=== PATIENT | male | born 1975 | race Caucasian/White ===

== ENCOUNTER → 2017-03-27 11:10 | Outpatient (CLI) | payer BC, SELFPAY ==
[2017-03-27 12:42] LABS: PSA,Total- Diagnostic 0.49 ng/mL (0.0-4.0)
== END ==
PROVIDERS: Family Provider Family Medicine; PCP Family Medicine; Visit Provider Family Medicine
DX: N40.0 Benign prostatic hyperplasia without lower urinary tract symptoms (principal)
CPT/HCPCS: 36415; 84153

== ENCOUNTER → 2017-12-30 06:21 | Outpatient (CLI) | payer BC, SELFPAY ==
[2017-12-30 09:11] LABS: AST(SGOT) 22 U/L (15-37); Alanine Aminotransfer ALT/SGPT 51 U/L (16-61); Alkaline Phosphatase 84 U/L (45-117); Anion Gap 7 (5-15); BUN 19 mg/dL (7-18); BUN/Creat Ratio 18.6 RATIO (10-20); Calcium,Total 8.5 mg/dL (8.5-10.1); Chloride 102 mmol/L (98-107); Cholesterol 188 mg/dL (200); Creatinine, Serum 1.02 mg/dL (0.70-1.30); EST Glomerular Filtration Rate 84 mL/min (>60); Est Glom Filt Rate - Afr Amer 102 mL/min (>60); Glucose 75 mg/dL (74-106); High Density Lipoprotein 38 mg/dL; Potassium 3.9 mmol/L (3.5-5.1); Sodium Level 138 mmol/L (136-145); Thyroid Stim Hormone (TSH) 1.47 uIU/mL (0.358-3.74); Triglycerides 131 mg/dL; Very Low Density Lipoprotein 26 mg/dL (5-40)
[2017-12-30 09:45] LABS: Vitamin D,25 Hydroxy 23.1 ng/mL (29.95-100.01)
== END ==
PROVIDERS: Family Provider Family Medicine; PCP Family Medicine; Referring Provider Family Medicine; Visit Provider Family Medicine
DX: Z00.00 Encounter for general adult medical examination without abnormal findings (principal)
CPT/HCPCS: 36415; 80053; 80061; 82306; 84443

== ENCOUNTER → 2020-04-20 15:03 | Outpatient (CLI) | payer BC, SELFPAY ==
[2013-06-01 09:09] VITALS: BMI 36.1
--- NOTE | 2020-04-20 15:07 | RAD_ITS ---
STUDY: X-RAY - RIGHT KNEE REASON FOR EXAM: Right knee pain. TECHNIQUE: 4 view(s) of the knee. COMPARISON: None. FINDINGS: Normal visualized distal femur. Normal visualized proximal tibia and fibula. Normal proximal tibiofibular articulation. There is mild joint space narrowing of the medial femorotibial compartment. Normal lateral femorotibial compartment. Normal patellofemoral articulation. The soft tissue structures are unremarkable. RAD/Knee 4 or More Views IMPRESSION: Mild joint space narrowing of the medial femorotibial compartment. Electronically Signed: Juan Jose Carter MD at 8:27 EST Tel , Service support ,
== END ==
LOC: MTLAB 15:05
PROVIDERS: PCP Family Medicine; Referring Provider Family Medicine; Visit Provider Family Medicine
DX: M25.561 Pain in right knee (principal); E29.1 Testicular hypofunction
CPT/HCPCS: 36415; 73564; 84403

== ENCOUNTER → 2020-04-29 14:11 | Outpatient (CLI) | payer BC, SELFPAY ==
[2013-06-01 09:09] VITALS: BMI 36.1
== END ==
LOC: MTLAB 14:12
PROVIDERS: PCP Family Medicine; Referring Provider Family Medicine; Visit Provider Family Medicine
DX: E29.1 Testicular hypofunction (principal)
CPT/HCPCS: 36415; 84403

== ENCOUNTER → 2020-07-19 16:48 | Outpatient (CLI) | payer BC, SELFPAY ==
[2013-06-01 09:09] VITALS: BMI 36.1
[2020-07-19 18:01] LABS: Absolute Lymphocyte Count 1.77 X10^3/uL (0.83-4.51); Absolute Neutrophil Count 7.6 X10^3/uL (2.0-7.7); Basophil# 0.04 X10^3/uL; Basophil% 0.4 % (0-1); Eosinophil# 0.08 X10^3/uL; Eosinophils% 0.8 % (0-5); Hematocrit 53.2 % (40-54); Lymphocyte # 1.77 X10^3/ul (0.83-4.51); Lymphocyte % 17.3 % (19-41); Mean Corpuscular Hgb 28.6 pg (27.0-32.0); Mean Corpuscular Volume 89.4 fL (80-94); Mean Platelet Vol. 9.9 fl (6.2-12.0); Monocyte# 0.66 X10^3/uL; Monocyte% 6.5 % (0-10); NRBC Flagged by Analyzer 0 % (0-5); Neutrophil # 7.63 X10^3/uL (2.7-7.7); Neutrophil % 74.6 % (47-70); Platelet Count 271 K/mm3 (150-450); RBC Distribution Width CV 13.5 % (11.6-14.6); RBC Distribution Width SD 44.5 fl (35.1-43.9); Red Blood Count 5.95 M/mm3 (4.6-6.2); White Blood Count 10.2 K/mm3 (4.4-11.0)
[2020-07-19 18:31] LABS: AST(SGOT) 22 U/L (15-37); Alanine Aminotransfer ALT/SGPT 47 U/L (16-61); Albumin, Serum 3.8 g/dL (3.2-5.0); Alkaline Phosphatase 76 U/L (45-117); Anion Gap 4 (5-15); BUN 15 mg/dL (7-18); CRP 3.68 mg/L (0.0-3.0); Calcium,Total 8.7 mg/dL (8.5-10.1); Chloride 104 mmol/L (98-107); Cholesterol 210 mg/dL (200); Creatinine, Serum 0.88 mg/dL (0.70-1.30); EST Glomerular Filtration Rate 99 mL/min (>60); Est Glom Filt Rate - Afr Amer 119 mL/min (>60); Globulin 3.7 g/dL (2.2-4.2); Glucose 93 mg/dL (74-106); High Density Lipoprotein 42 mg/dL; Protein, Total 7.5 g/dL (6.4-8.2); Sodium Level 137 mmol/L (136-145); Thyroid Stim Hormone (TSH) 1.34 uIU/mL (0.358-3.74); Triglycerides 169 mg/dL; Very Low Density Lipoprotein 34 mg/dL (5-40)
[2020-07-20 07:51] LABS: CRP, High Sensitivity Cardiac 3.64 mg/L
== END ==
LOC: MTLAB 16:49
PROVIDERS: PCP Family Medicine; Referring Provider Nurse Practitioner Family; Visit Provider Nurse Practitioner Family
DX: R53.83 Other fatigue (principal); M62.81 Muscle weakness (generalized); E66.9 Obesity, unspecified
CPT/HCPCS: 36415; 80053; 80061; 83036; 84443; 85025; 86140; 86141

== ENCOUNTER → 2020-08-23 14:58 | Outpatient (CLI) | payer BC, SELFPAY ==
[2013-06-01 09:09] VITALS: BMI 36.1
--- NOTE | 2020-08-23 15:00 | RAD_ITS ---
STUDY: X-RAY - CERVICAL SPINE REASON FOR EXAM: Male, 45 years old. CERVICAL RADICULOPATHY TECHNIQUE: 5 view(s) of the cervical spine were obtained including oblique views. COMPARISON: None FINDINGS: Normal anterior atlantoaxial articulation. Normal odontoid process. There is straightening of the normal cervical lordosis. There is multi-level endplate spondylosis. There is multi-level degenerative disc disease with multilevel disc space narrowing. Normal visualized intervertebral neuroforamina. The soft tissue structures are unremarkable. RAD/Cerv Spine 4 or 5 Views IMPRESSION: Straightening of the normal cervical lordosis with disc space narrowing and spondylosis at the C4-C5, C5-6 and C6-C7 levels. Electronically Signed: Aguilar Barbosa MD at 15:38 EDT , Service support ,
== END ==
LOC: MTRAD 14:59
PROVIDERS: PCP Family Medicine; Referring Provider Family Medicine; Visit Provider Family Medicine
DX: M54.12 Radiculopathy, cervical region (principal)
CPT/HCPCS: 72050

== ENCOUNTER → 2020-12-23 15:37 | Outpatient (CLI) | payer BC, SELFPAY | PROVIDERS: PCP Family Medicine; Referring Provider Family Medicine; Visit Provider Family Medicine | DX: E29.1 Testicular hypofunction (principal) | CPT/HCPCS: 36415; 84403 ==

== ENCOUNTER 2021-02-27 07:07 | Outpatient (CLI) | payer BC, SELFPAY ==
--- NOTE | 2021-02-27 07:22 | MRI_ITS ---
ACR Level 3 findings have been noted. An addendum which confirms receipt of the report will follow. HISTORY: Radiculopathy 6 months, severe neck pain between shoulder blades up neck down left and right arms to elbows. TECHNIQUE: Routine MRI of the cervical spine was performed. # of images incl. paperwork: 267. IV Contrast dosage and agent: None. COMPARISON: XR 08/23/2020. FINDINGS: VERTEBRAE: Vertebral body heights maintained. Focal fat or small hemangioma in the left C2 vertebral body. Mild degenerative bone marrow endplate changes at C4-5, C5-6, and C6-7. ALIGNMENT: Straightening of the cervical lordosis without significant anterior or posterior subluxation. CORD: Slightly increased T2 signal in the cord at the C5-6 level. SOFT TISSUES: No prevertebral fluid collection. INTERVERTEBRAL DISCS: C2-3: No significant posterior disc protrusion, central canal stenosis, or foraminal narrowing. C3-4: Moderate central disc extrusion with superior migration resulting in cord abutment and mild-moderate central canal stenosis. C4-5: Posterior disc bulge osteophyte complex with uncovertebral and facet arthropathy resulting in mild-moderate central canal stenosis and very mild right foraminal narrowing. C5-6: 6 x 9 x 18 mm ventral epidural lesion with circumscribed peripheral hypointensity and centrally T1 and T2 isointense to the intervertebral disc at the posterior aspect of the intervertebral disc with superior and inferior migration, markedly severe spinal canal stenosis, and cord compression. C6-7: Moderate posterior disc bulge osteophyte complex with uncovertebral and facet arthropathy resulting in mild cord impingement, moderate central canal stenosis, and very mild left foraminal narrowing. MRI/Spine Cervical (Routine) IMPRESSION: Ventral epidural lesion at the C5-6 level suspicious for disc extrusion with superior and inferior migration resulting in cord compression, mild spinal cord edema, and severe spinal canal stenosis. Tumor could have a similar appearance on noncontrast examination. Multilevel degenerative disc disease as described above. at 1041 Reported and signed by: Winsome Garibay MD Electronically Signed: Winsome Garibay MD at 10:39 EST Tel , Service support ,
== END 2021-02-27 23:59 | disposition short-term general hospital (02) ==
PROVIDERS: PCP Family Medicine; Referring Provider Family Medicine; Visit Provider Family Medicine
DX: M54.12 Radiculopathy, cervical region (principal)
CPT/HCPCS: 72141

== ENCOUNTER 2021-04-07 07:26 | Inpatient (IN) | payer BC, SELFPAY ==
--- NOTE | 2021-03-29 16:12 | EKG12_ITS ---
Test Reason : PRE OP Blood Pressure : / mmHG Vent. Rate : 073 BPM Atrial Rate : 073 BPM P-R Int : 168 ms QRS Dur : 074 ms QT Int : 368 ms P-R-T Axes : 003 -18 023 degrees QTc Int : 405 ms Normal sinus rhythm Normal ECG Confirmed by TONIA TATUM, ZIA ([id number]), medical editor AYAD ABDI ([id number]) on 04/04/2021 12:58:59 PM Referred By: AYAZ Confirmed By:ZIA RANDALL MD
[2021-03-29 16:22] LABS: Absolute Lymphocyte Count 2.48 X10^3/uL (0.83-4.51); Absolute Neutrophil Count 6.2 X10^3/uL (2.0-7.7); Basophil# 0.04 X10^3/uL; Basophil% 0.4 % (0-1); Eosinophil# 0.23 X10^3/uL; Eosinophils% 2.4 % (0-5); Hematocrit 50.7 % (40-54); Hemoglobin 16.8 g/dL (13.0-16.5); Lymphocyte # 2.48 X10^3/ul (0.83-4.51); Lymphocyte % 25.4 % (19-41); Mean Corp Hgb Conc 33.1 g/dL (32-36); Mean Corpuscular Hgb 28.8 pg (27.0-32.0); Mean Corpuscular Volume 86.8 fL (80-94); Monocyte# 0.77 X10^3/uL; Monocyte% 7.9 % (0-10); NRBC Flagged by Analyzer 0 % (0-5); Neutrophil # 6.19 X10^3/uL (2.7-7.7); Neutrophil % 63.5 % (47-70); Platelet Count 268 K/mm3 (150-450); RBC Distribution Width CV 13.8 % (11.6-14.6); RBC Distribution Width SD 43.3 fl (35.1-43.9); Red Blood Count 5.84 M/mm3 (4.6-6.2); White Blood Count 9.8 K/mm3 (4.4-11.0)
[2021-03-29 17:02] LABS: Anion Gap 5 (5-15); BUN 15 mg/dL (7-18); BUN/Creat Ratio 17.4 RATIO (10-20); Chloride 103 mmol/L (98-107); Creatinine, Serum 0.86 mg/dL (0.70-1.30); EST Glomerular Filtration Rate 101 mL/min (>60); Est Glom Filt Rate - Afr Amer 122 mL/min (>60); Glucose 85 mg/dL (74-106); Potassium 4.2 mmol/L (3.5-5.1); Sodium Level 138 mmol/L (136-145)
[2021-03-30 08:54] LABS: HIV - WCH Non-Reactive (Nonreactive); Hepatitis B Surface Antibody Reactive; Hepatitis C Antibody Non-Reactive (Nonreactive)
[2021-03-31 06:08] LABS: MG Sendout 2.3 mg/dL (1.6-2.3)
[2021-03-31 14:26] LABS: Hepatitis A AB, Total Negative (Negative)
[2021-04-07] VITALS (14 sets, daily range): BP systolic 130–161; BP diastolic 77–104; PULSE 87–114; RESP 16–18; TEMP 36.4–36.7; O2SAT 92–97; BMI 38.5
[2021-04-07] MEDS: Acetaminophen 500 MG Tablet 1000 MG PO ×2 (06:26→22:43)
[2021-04-07] MEDS: Lactated Ringers 1,000 ML 15 ML IV ×3 (06:36→11:00)
[2021-04-07] MEDS: dexAMETHasone 10 MG/ML Vial 8 MG IV (06:37)
[2021-04-07 07:07] LABS: Bedside Glucose 126 mg/dL (70-110)
--- NOTE | 2021-04-07 07:25 | HP.PCM_ITS ---
History and Physical Date of Admission: 04/07/21 [facility] [id number] [phone] OFFICE VISITDate of Service: 03/06/21 MR#:[id number]:[id number]: REBECCA PADGETT WR #:[id number]:[id number] Provider:Dr. Damir Dubose, Age/Sex: 46/M Location:[place]:Signed Intake Vital Signs 03/06/21 14:36 Height 5 ft 8 in Weight: 251 lb BMI 38.1 Intake Visit Reasons: Cervical pain Is patient in pain?: Yes Pain scale (1-10): 8 Allergies shellfish derived Allergy (Verified 03/06/21 14:36) rash Medications citalopram 20 mg PO DAILY 06/01/13 [History Confirmed 03/06/21] dicloxacillin 500 mg PO Q6H 5 Days capsule 06/01/13 [Rx Confirmed 03/06/21] hydrocodone-acetaminophen 1 tab PO Q4H PRN PRN #20 tablet 06/01/13 [Rx Confirmed 03/06/21] gabapentin 300 mg capsule 300 mg PO DAILY 03/06/21 [History Confirmed 03/06/21] PFSH Social History Smoking Status: Unknown if ever smoked HPI Pain of cervical spine Details: Parts of this documentation were recorded by a scribe, this documentation accurately reflects the service provided and the decisions made by me, Dr. Damir Dubose, 03/06/21 5430. REBECCA PADGETT is a 46 year old M here today for cervical spine pain. Patient notes that he has had pain for about a year. He denies any known injury. 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 Patient denies any prior surgeries. He complains of pain over his mid cervical spine. Patient notes that he has numbness of his bilateral arms, typically stopping at his elbows but he has noticed it traveling farther down. Patient went to [facility] for physical therapy and PRP injection which was helpful for about 6 months. Patient denies any epidural injections. He had xrays and an MRI which are here for review. Patient takes hydrocodone and aleve for pain. He also takes gabapentin for pain when the other medications arent helpful. Rebecca is a pleasant gentleman 46 years old that has chief complaint of pain in his neck that sometimes radiates into both his arms. This started insidiously perhaps somewhere between 6 and 9 months ago. But it came on fast. He has tried different treatments but Dr. Tobias had the foresight to order an MRI scan of his cervical spine after examining him. He denies any bowel or bladder dysfunction. He denies any uncoordination or weakness in both his lower extremities. He denies numbness in his lower extremities. He denies history of unexplained weight loss night fever sweats or chills. Examination he has more pain with extension and flexion of his cervical spine. He has good motor strength of all major muscle groups of both upper extremities. He has physiologic reflexes bilaterally. He has hyper reflexive patellar reflexes bilaterally. But he has no long tract signs. Clonus is absent and Babinski's are downgoing. I reviewed his MRI scan demonstrates that he has a large extrusion in the center at C5-6. The material went behind the C6 vertebral body perhaps 60% of the way down. There is currently no myelomalacia of the spinal cord. However there is a slightly increased T2 signal behind the C5-6 area. This indicates some significant pressure on the spinal cord itself. I discussed this finding with the Rebecca and his . Obviously this will require surgical intervention. To get all of the disc I will probably have to do a partial corpectomy of the top of C6 vertebra. We will schedule him for surgery as soon as is reasonably possible. Coding Level of Care Code Off vis,new,level 3 Diagnoses Pain of cervical spine M54.2 HNP (herniated nucleus pulposus) with myelopathy, cervical M50.00 Time Spent (min) 35 Assessment and Plan Assessment and Plan (1) Pain of cervical spine:
--- NOTE | 2021-04-07 07:30 | DISC_PTH ---
PATIENT: REBECCA PADGETT LOC: MS3 U#:[id number] AGE/SX: 46/M [place] [facility] [place]: Dr. Jovita Hewitt DO : 1975 BED: 1 DIS: 04/08/2021 SPEC #: [id number] RECD: 04/07/21 11:32 STATUS: ALIYA SHONDA #: [id number] LAM: 04/07/21 07:[address]: Damir Dubose DEPT: SURGICAL PATHOLOGY RECD BY: Armando Keyes ENTERED: 04/07/21 13:08 SP TYPE: DISC OTHR DR: Dr. Vitor Tobias MD Tissues: A - Intervertebral disc, NOS B - Intervertebral disc, NOS Procedures: Decalcification bone/plaque Surgery Specimen Level III HEADER OPERATION: ERAS, anterior cervical fusion cervical 5-6 with corpectomy PRE-OP DIAGNOSIS: Pain of cervical spine, herniated nucleus pulposus with myelopathy TISSUE SUBMITTED: A ? C5-6 disc, B ? Extruded fragment C5-6 MICROSCOPIC DIAGNOSIS A. Intervertebral disc, C5-6, discectomy: Degenerative and focal reparative change. B. Extruded fragment of disc, C5-6, biopsy: Fragments of intervertebral disc with degenerative change. AM:zay 04/12/2021 MICROSCOPIC DESCRIPTION Slides are reviewed. GROSS DESCRIPTION A - Received in fixative is one container labeled with the patient's name and designated C5-6 disc. The specimen consists of multiple irregular fragments of jade, indurated tissue that in aggregate measure 5 x 3 x 0.3 cm. The specimen is totally submitted in two cassettes. B - Received in fixative is one container labeled with the patient's name and designated extruded fragment C5-6. The specimen consists of multiple irregular fragments of jade soft tissue mixed with fragments of bone that in aggregate measure 2.5 x 1 x 0.3 cm. The specimen is totally submitted in one cassette after decalcification. / SJ:zay 04/07/2021 TC:5 CPT: 50460 x2, 24694
[2021-04-07] MEDS: Cefazolin 2 GM in 0.9% Normal Saline 100 ML IV (07:44)
--- NOTE | 2021-04-07 08:05 | RAD_ITS ---
STUDY: X-RAY - CERVICAL SPINE REASON FOR EXAM: Male, 46 years old. ANTERIOR FUSION C5-6 WITH INTERNAL FIXATION -- IMAGE 1 TECHNIQUE: Single lateral view(s) of the cervical spine was obtained. COMPARISON: None FINDINGS: Localization instrument seen along the anterior aspect of the C5-C6 disc space level. RAD/Spine 1 View Any Level IMPRESSION: Localization instrument is seen along the anterior aspect of the C5-C6 disc space level. Electronically Signed: Aguilar Barbosa MD at 8:47 EST ,
[2021-04-07] MEDS: Heparin 10,000 UNITS/10 ML Vial 10000 UNITS (08:40)
[2021-04-07] MEDS: THROMBIN (RECOMBINANT) 20,000 UNIT VIAL 20000 UNIT TOPICAL (08:40)
--- NOTE | 2021-04-07 09:10 | RAD_ITS ---
STUDY: X-RAY - LUMBAR SPINE REASON FOR EXAM: Male, 46 years old. ANTERIOR CERVICAL FUSION, CORPECTOMY,INTERNAL FIXATION AND CAGE -- IMAGE 2 TECHNIQUE: Single lateral view(s) of the lumbar spine was obtained. COMPARISON: None FINDINGS: The localization instrument is seen along the anterior aspect of the C6-C7 level. RAD/Spine 1 View Any Level IMPRESSION: Localization instrument is seen along the anterior aspect of the C6-C7 level. Electronically Signed: Aguilar Barbosa MD at 10:12 EST ,
--- NOTE | 2021-04-07 09:19 | RAD_ITS ---
STUDY: X-RAY - LUMBAR SPINE REASON FOR EXAM: Male, 46 years old. POSITION RE-CHECK -- #3 TECHNIQUE: 1 lateral view(s) of the lumbar spine was obtained. COMPARISON: None FINDINGS: The localization instrument is seen along the anterior aspect of the C5-C6 level. RAD/Spine 1 View Any Level IMPRESSION: The localization instrument is seen along the anterior aspect of the C5-C6 level. Electronically Signed: Aguilar Barbosa MD at 10:13 EST ,
--- NOTE | 2021-04-07 11:30 | OP.PCM_ITS ---
Report of Operation Date of Procedure: 04/07/21 Description of Surgical Findings:: Preoperative diagnosis: Herniated disc C5-6 with myelopathy Postoperative diagnosis: The same Procedures: #1 corpectomy of the C6 vertebra (50% of vertebra removed) CPT code 89476 #2 anterior lumbar interbody fusion C5-6 CPT code 46675 #3 internal fixation with anterior spine plate CPT code 04110/59 #4 insertion of cage C5-6 CPT code 69823 Surgeon: Dr. Dubose equity sales assistant: J Luis RICHARDSON Anesthesia: General endotracheal anesthesia administered by [facility] Estimated blood loss: Less than 30 cc Drains: 1/4 inch Sowmya Complications: None Procedure: Patient was taken to the OR where he was placed in the supine position on the operating table. He was placed under general endotracheal anesthesia. A Umaña catheter was inserted. Neuro monitoring placed their leads on the patient. The neck and right crest area were prepped and draped in standard fashion. Noted prior to the prepping the skin was marked with a small laceration using the end of a needle at the point where the incision would start this is based on an x-ray taken preoperatively. I then made the incision at that predetermined point in line with one of his longer's lines. Subcutaneous tissues were incised length of skin incision I then undermined the subcutaneous tissues in a cephalad and caudad direction. I split the platysma and right line with its fibers and developed the planes under them. First we opened the superficial cervical fascia followed by the opening of the pretracheal fascia. I was then able to retract the midline structures and strap muscles to the left the carotid and sternocleidomastoid to the right. Notify the disc space thought to be C5-6. Instead it was C6-7. We simply moved up the level and placed another needle at 5 6 and took another x-ray to absolutely confirm that we were indeed at the C5-6 level which we were. It was confirmed by radiology. Then cauterized the longus coli muscles on either side and put the database administration associate retractors in place. He was quite deep and we had to use 60 mm depth side to side and 70 up-and-down. This gave us good exposure to the C5-6 disc. I then cut the anterior annulus with a 15 blade and removed it. I then cauterized the anterior longitudinal ligament and periosteum above and below the disc space. I went fairly far down on C6 because I knew that I was going to have to do a corpectomy. The disc was so large that it went down about 60% of the way to the next disc. This was an extremely large and central disc rather unusual. There was some question that it could possibly be a tumor however it turned out to be a disc. Then removed the nucleus from within the disc space with pituitary rongeurs and removed some of the endplate cartilage with curettes especially at the top of C6. Was able to identify the large tear in the posterior longitudinal ligament and removed a couple of free fragments of disc. I need however there would be more and we would have to proceed with the corpectomy. I used a oj bur both a 4 mm and 6 mm bur to slowly bur the top of the vertebra this was done with the instillation of cold saline over and over again to keep the bone cool and to keep the tip of the oj bur cool about half of the vertebra was removed in this fashion. Then used Kerrison rongeurs to remove the remaining posterior lip that was not removed with the bur for fear. I also removed some of the posterior longitudinal ligament in this fashion opening a large space several large free fragments were then removed completely decompressing the spinal cord. We remove the anterior lips on both vertebra with oj bur. Patient was were taken for a large cage. We used the largest cage available and it filled the entire large space. Note that we have filled it with demineralized bone matrix that was soaked in the patient's own concentrated stem cells. This was obtained earlier from the right iliac crest through a Jamshidi needle. The computer laboratory technician then concentrated the cells and them from the other cells. Then tamped it into place with anesthesia pulling on the head and countersunk it a couple of millimeters. We then took her measurements for the size of the plate that we would use. Because we did remove some much of the vertebra of the area the plate the screws and was small and had in fact bur the beginning of the lip of the plate would fit flat. Centered the plate used awl to punch each hole individually 2 into C5 and 2 into C6. We then observed this on x-ray was found to be in excellent position with good position of the large cage the plate and the screws. Amnionic membrane was then placed over the plate to prevent adhesions to the trachea or the esophagus. Using the amniotic membrane can result in adhesions forming to the esophagus leaving the patient with difficulty swallowing for the rest of their lives. It is the reason that we use the amnionic membrane as this prevents that from happening. 1/4 inch Elk drain was then left in place and closure was begun. We closed the the platysma running fashion with 5-0 Vicryl 5 the closure of the subcutaneous tissues with 5-0 Vicryl in interrupted fashion. This approximated the skin there was no need for outside stitches. Sterile dressings were then applied and a safety pin was placed through the drain to prevent a suction into the wound. This is the end of operative summary on Kirt Lora. This is Dr. Dubose dictating.
--- NOTE | 2021-04-07 11:40 | RAD_ITS ---
STUDY: X-RAY - LUMBAR SPINE REASON FOR EXAM: Male, 46 years old. CERVICAL FUSION TECHNIQUE: 1 view(s) of the lumbar spine was obtained. COMPARISON: None FINDINGS: The patient is status post anterior fusion and disc placement at the C5-C6 level. RAD/Spine 1 View Any Level IMPRESSION: The patient is status post anterior fusion and disc placement at the C5-C6 level. Electronically Signed: Aguilar Barbosa MD at 12:35 EST ,
[2021-04-07] MEDS: dexAMETHasone 4 MG/ML Vial IV ×2 (13:17→18:34)
[2021-04-07] MEDS: Morphine 2 MG/ML Syringe IV (15:09)
[2021-04-07] MEDS: Cefazolin 1 GM/50 ML BAG IV ×2 (16:49→23:05)
[2021-04-07] MEDS: oxyCODONE 5 MG Tablet PO ×2 (16:50→20:57)
[2021-04-07] MEDS: Lactated Ringers 1,000 ML 100 ML IV (18:29)
[2021-04-07] MEDS: Zolpidem Tartrate 5 MG Tablet PO (20:57)
--- NOTE | 2021-04-07 21:41 | EKG12_ITS ---
Test Reason : CP Blood Pressure : / mmHG Vent. Rate : 098 BPM Atrial Rate : 098 BPM P-R Int : 186 ms QRS Dur : 074 ms QT Int : 352 ms P-R-T Axes : 051 -20 021 degrees QTc Int : 449 ms Normal sinus rhythm Leftward axis Confirmed by TONIA TATUM, ZIA ([id number]), videotape editor AYAD ABDI ([id number]) on 04/12/2021 1:10:20 PM Referred By: Damir Dubose Confirmed By:ZIA RANDALL MD
--- NOTE | 2021-04-07 22:46 | PCM.PN.HOSP ---
Subjective Subjective Consult for post-op medical management: 46-year-old male with chronic cervical spine pain, with associated numbness who comes in for elective surgery. Patient had tried physical therapy and injection in the outpatient which was helpful for short time. Pain was mostly in his neck and radiates into his arms. MRI of his neck had shown a large extrusion in the central C5-C6. He was admitted for herniated disc C5-C6 with myelopathy. Hospital medicine was consulted for postop medical management. Patient earlier on complained of chest pain, left-sided, dull, lasted for a few minutes. EKG showed normal sinus rhythm. Vital signs remained stable. He is slightly tachycardic. He complains of frontal headache, inability to sleep. Denied any history of migraines or headaches. Objective Data Objective Data Vital Signs: Vital Signs Temp Pulse Resp BP Pulse Ox 98.1 F 101 H 18 137/88 H 97 04/07/21 21:31 04/07/21 21:31 04/07/21 21:31 04/07/21 21:31 04/07/21 21:31 Oxygen Flow Rate (L/min) 4 Oxygen Delivery Method Room Air Weight: 111.493 kg Body Mass Index (BMI) 38.5 Intake & Output: Intake and Output for Last 24 Hours 04/05/21 04/06/21 04/07/21 23:59 23:59 23:59 Intake Total 2267 / 2267 Output Total 1125 / 1125 Balance 1142 / 1142 Lab / Micro Data Result Diagrams: 03/29/21 15:59 03/29/21 15:59 Labs: Laboratory Results - last 24 hr 04/07/21 06:07: POC Glucose 126 H Micro: Microbiology 03/29/21 15:59 Interface Orders Nasal Screen MRSA/MSSA - Final Radiography Diagnostic Testing: Radiology Impression Spine X-Ray 04/07/21 08:05 IMPRESSION: Localization instrument is seen along the anterior aspect of the C5-C6 disc space level. Electronically Signed: Aguilar Barbosa MD at 8:47 EST , Spine X-Ray 04/07/21 09:10 IMPRESSION: Localization instrument is seen along the anterior aspect of the C6-C7 level. Electronically Signed: Aguilar Barbosa MD at 10:12 EST , Spine X-Ray 04/07/21 09:19 IMPRESSION: The localization instrument is seen along the anterior aspect of the C5-C6 level. Electronically Signed: Aguilar Barbosa MD at 10:13 EST , Spine X-Ray 04/07/21 11:40 IMPRESSION: The patient is status post anterior fusion and disc placement at the C5-C6 level. Electronically Signed: Aguilar Barbosa MD at 12:35 EST , Physical Exam Narrative Physical exam: General: Alert, Oriented x3, Cooperative, No apparent distress, Well developed, obese HEENT: Atraumatic, soft cervical collar in place Oral: Moist Mucosa Neck: Supple Lungs: Clear to auscultation Cardiovascular: HS I+II, regular, no murmurs Abdomen: Bowel Sounds Present, Soft, Non Tender Extremities: No edema Assessment & Plan Assessment/Plan (1) Herniated nucleus pulposus, C5-6 left: (2) HNP (herniated nucleus pulposus) with myelopathy, cervical: PLAN: 1. Postop chest pain, unclear etiology, patient without risk factors for cardiovascular disease EKG showed no acute ST-T abnormality, troponins x1 was negative Continue to monitor 2. POD #0, status post cervical surgery-corpectomy of the C6 vertebrae, anterior lumbar interbody fusion C5-C6, internal fixation with anterior spine plate, insertion of cage C6-6 Continue on IV dexamethasone, antibiotics, as needed pain meds PT/OT to evaluate and treat. Neurosurgery recommendations 3. Anxiety/depression: Continue Celexa 4. DVT PPx- per neurosurgery recommendation Charges/Coding Visit Charges Inpatient E&M: 49065 Subs Hosp L2
[2021-04-07 23:59] LABS: Troponin-I HS 5 pg/mL (3.0-78.0)
[2021-04-08] MEDS: dexAMETHasone 4 MG/ML Vial 2 MG IV ×2 (00:09→06:13)
[2021-04-08] MEDS: Ketorolac 30 MG/ML Syringe IV (00:09)
[2021-04-08 01:29] VITALS: BP 146/86; PULSE 104; RESP 18; TEMP 36.7; O2SAT 95
[2021-04-08] MEDS: Lactated Ringers 1,000 ML 100 ML IV (04:14)
[2021-04-08] MEDS: 0.9% Saline Lock 10 ML Syringe IV (04:25)
[2021-04-08] MEDS: Morphine 2 MG/ML Syringe IV (04:25)
[2021-04-08 04:32] VITALS: BP 136/74; PULSE 92; RESP 18; TEMP 36.6; O2SAT 95
[2021-04-08 06:17] LABS: Absolute Lymphocyte Count 0.71 X10^3/uL (0.83-4.51); Basophil# 0.01 X10^3/uL; Basophil% 0.1 % (0-1); Hematocrit 49.6 % (40-54); Hemoglobin 16.9 g/dL (13.0-16.5); Lymphocyte # 0.71 X10^3/ul (0.83-4.51); Mean Corp Hgb Conc 34.1 g/dL (32-36); Mean Corpuscular Hgb 29.2 pg (27.0-32.0); Mean Corpuscular Volume 85.8 fL (80-94); Monocyte# 0.41 X10^3/uL; Monocyte% 2.9 % (0-10); NRBC Flagged by Analyzer 0 % (0-5); Neutrophil # 12.97 X10^3/uL (2.7-7.7); Neutrophil % 91.5 % (47-70); Platelet Count 256 K/mm3 (150-450); RBC Distribution Width CV 13.3 % (11.6-14.6); RBC Distribution Width SD 41.6 fl (35.1-43.9); Red Blood Count 5.78 M/mm3 (4.6-6.2); White Blood Count 14.2 K/mm3 (4.4-11.0)
[2021-04-08 06:29] VITALS: BP 138/76; PULSE 85; RESP 16; TEMP 36.6; O2SAT 96
[2021-04-08 06:51] LABS: ALB/GLOB Ratio 0.9 RATIO (0.9-2.4); AST(SGOT) 29 U/L (15-37); Alanine Aminotransfer ALT/SGPT 41 U/L (16-61); Albumin, Serum 3.3 g/dL (3.2-5.0); Alkaline Phosphatase 68 U/L (45-117); Anion Gap 5 (5-15); BUN 17 mg/dL (7-18); BUN/Creat Ratio 20.5 RATIO (10-20); Calcium,Total 8.3 mg/dL (8.5-10.1); Chloride 103 mmol/L (98-107); Creatinine, Serum 0.83 mg/dL (0.70-1.30); EST Glomerular Filtration Rate 106 mL/min (>60); Est Glom Filt Rate - Afr Amer 128 mL/min (>60); Estimated Creatinine Clearance 102.87 ml/min; Globulin 3.7 g/dL (2.2-4.2); Glucose 142 mg/dL (74-106); Potassium 4.2 mmol/L (3.5-5.1); Sodium Level 136 mmol/L (136-145)
[2021-04-08 08:57] VITALS: BP 145/86; PULSE 80; RESP 18; TEMP 36.6; O2SAT 98
[2021-04-08] MEDS: Ensure Surgery 237 ML LIQUID PO ×2 (09:02→11:56)
[2021-04-08] MEDS: Citalopram 20 MG Tablet PO (09:02)
[2021-04-08] MEDS: oxyCODONE 5 MG Tablet PO (10:09)
[2021-04-08] MEDS: Acetaminophen 500 MG Tablet 1000 MG PO (10:09)
--- NOTE | 2021-04-08 12:30 | CASEMGMT ---
RN [place] Face to Face with patient for initial transition planning/care coordination assessment. RN CM introduced self and role at [facility]. Patient sitting in chair, alert and oriented. Patient willing to participate in assessment and is able to answer all questions appropriately. Care providers, pharmacy, and demographics verified. Patient wishes to discharge home, denies need for home health at this time. Patient states he has no further needs or concerns at this time. CM to follow for discharge planning needs that may arise. PCP: Micheline Specialists: nathen Dubose Pharmacy: [facility] Insurance: [place] Prescription Benefit: yes Living Will/HPOA: none LNOK: Living Arrangements: Patient lives with in a 2 story home with bed and bath on first floor. Patient was independent at home prior to surgery Transportation: DME/HHC: Patient states he has access to walker if needed. Denies further DME or previous HHC. Disposition Plan: Patient to discharge home with family support and follow-up plans in place. Jolanta LIZ, RN, CM
--- NOTE | 2021-04-08 13:23 | PN.HOSP_ITS ---
Subjective Subjective Patient states he is feeling well. Asking to order breakfast. States he should be going home later today. No overnight issues other than some neck pain and a headache which he indicated was expected. Objective Data Objective Data Vital Signs: Vital Signs Temp Pulse Resp BP Pulse Ox 97.9 F 80 18 145/86 H 98 04/08/21 08:57 04/08/21 08:57 04/08/21 08:57 04/08/21 08:57 04/08/21 08:57 Oxygen Flow Rate (L/min) 94 Oxygen Delivery Method Nasal Cannula Weight: 111.493 kg Body Mass Index (BMI) 38.5 Intake & Output: Intake and Output for Last 24 Hours 04/06/21 04/07/21 04/08/21 23:59 23:59 23:59 Intake Total 2317 / 2317 1575 / 1575 Output Total 1125 / 2575 3272 / 3272 Balance 1192 / -258 -1697 / -1697 Lab / Micro Data Result Diagrams: 04/08/21 04:38 04/08/21 04:38 Labs: Laboratory Results - last 24 hr 04/07/21 23:16: Troponin I High Sens 5 04/08/21 04:38: WBC 14.2 H, RBC 5.78, Hgb 16.9 H, Hct 49.6, MCV 85.8, MCH 29.2, MCHC 34.1, RDW Std Deviation 41.6, RDW Coeff of Brenton 13.3, Plt Count 256, MPV 10.0, Immature Gran % (Auto) 0.500, Neut % (Auto) 91.5 H, Lymph % (Auto) 5.0 L, Swisher % (Auto) 2.9, Eos % (Auto) 0.0, Baso % (Auto) 0.1, Absolute Neuts (auto) 13.0 H, Absolute Lymphs (auto) 0.71 L, Nucleated RBC % 0 04/08/21 04:38: Sodium 136, Potassium 4.2, Chloride 103, Carbon Dioxide 28.0, Anion Gap 5, BUN 17, Creatinine 0.83, Estim Creat Clear Calc 102.87, Est GFR (MDRD) Af Amer 128, Est GFR (MDRD) Non-Af 106, BUN/Creatinine Ratio 20.5 H, Glucose 142 H, Calcium 8.3 L, Total Bilirubin 0.40, AST 29, ALT 41, Alkaline Phosphatase 68, Total Protein 7.0, Albumin 3.3, Globulin 3.7, Albumin/Globulin Ratio 0.9 Micro: Microbiology 03/29/21 15:59 Interface Orders Nasal Screen MRSA/MSSA - Final Physical Exam Const alert, oriented x3 and no apparent distress Constitutional Narrative: Obese white male sitting up in bed, appears comfortable, nontoxic, soft cervical collar in place Exam Limitations: no limitations Nutritional Appearance: obese HEENT head/scalp atraumatic and moist oral mucous membranes HEENT Narrative: Mallampati is 3, no thrush, dentition is good Head and Scalp: normocephalic Resp normal respiratory effort, no retractions, no use of accessory muscles and clear to auscultation bilaterally Cardio regular rate, regular rhythm, S1 normal heart sound, S2 normal heart sound, no murmurs, no rub, no gallops, no clicks and no JVD GI normal to inspection, nondistended, normoactive bowel sounds, soft to palpation, non-tender and non-distended Extremity no clubbing, cyanosis or edema Peripheral Pulses: Yes pulses 2+ throughout Neuro oriented x3, moves all extremities and no focal motor deficits Sensorium / Orientation: awake and alert Speech: speech normal Assessment & Plan Assessment/Plan (1) Herniated nucleus pulposus, C5-6 left: PLAN: C5-C6 HNP with myelopathy status post cervical corpectomy of the C6 vertebrae with an anterior lumbar interbody fusion at C5 and C6 and internal fixation with an anterior spine plate -Continue postop management per primary service -Plan per orthospine -Postop day 0 -Postop lab results reviewed and no follow-up lab or intervention required at this time -We will stop IV fluids since patient is eating and drinking well Anxiety/depression -Continue Celexa Obesity -Complicates treatment, prognosis, outcomes DVT prophylaxis -Recommendations per primary service Okay to discharge from a medical standpoint Charges/Coding Visit Charges Inpatient E&M: 76430 Subs Hosp L2
--- NOTE | 2021-04-08 13:43 | DS.PCM_ITS ---
Providers Date of Admission: 04/07/21 Primary Care Physician: Dr. Vitor Tobias MD Consultations 04/07/21 22:30 Consult: Hospitalist Routine Consulting Provider: Aida Martinez Reason for Consult: medical management EMERGENT Consult: No MD Notified: Yes Date Notified: 04/07/21 Time Notified: 22:30 Method of Notification: Text Reason For Visit: ANTERIOR CERVICAL FUSION C5, C6 Diagnosis Discharge Diagnosis (1) Herniated nucleus pulposus, C5-6 left: Status: Acute Code(s): M50.222 - Other cervical disc displacement at C5-C6 level Medications at Discharge Home Medications citalopram 20 mg PO DAILY 06/01/13 Tylenol Migraine 0.5 - 1 tab PO/SL DAILY PRN PRN 04/07/21 cholecalciferol (vitamin D3) [Vitamin D3] 250 mcg PO DAILY 04/07/21 tramadol 50 mg PO Q6H 04/07/21 Hospital Course Summary of Care Provided Hospital Course: KirtAdmitted to the hospital yesterday April 07. He underwent anterior cervical corpectomy of C6 with interbody fusion at C5-6. He tolerated the procedure well. Hospital course has been unremarkable. Today his voice is clear he has no Monica's syndrome states that his pain is not too bad at all. The dressing was changed and the drain was removed. I gave him directions regarding his activities over the next several weeks. He already has an appointment to see me in the office. I gave him hydrocodone for pain. He will remove the dressing in 4 days and take a shower in 5 days. Weight / BMI Weight Weight: 245 lb 12.8 oz Body Mass Index (BMI) 38.5 ABG / Lab / Microbiology Data Result Diagrams: 04/08/21 04:38 04/08/21 04:38 Laboratory: Laboratory Results - last 24 hr 04/07/21 23:16: Troponin I High Sens 5 04/08/21 04:38: WBC 14.2 H, RBC 5.78, Hgb 16.9 H, Hct 49.6, MCV 85.8, MCH 29.2, MCHC 34.1, RDW Std Deviation 41.6, RDW Coeff of Brenton 13.3, Plt Count 256, MPV 10.0, Immature Gran % (Auto) 0.500, Neut % (Auto) 91.5 H, Lymph % (Auto) 5.0 L, [place] % (Auto) 2.9, Eos % (Auto) 0.0, Baso % (Auto) 0.1, Absolute Neuts (auto) 13.0 H, Absolute Lymphs (auto) 0.71 L, Nucleated RBC % 0 04/08/21 04:38: Sodium 136, Potassium 4.2, Chloride 103, Carbon Dioxide 28.0, An ion Gap 5, BUN 17, Creatinine 0.83, Estim Creat Clear Calc 102.87, Est GFR (MDRD) Af Amer 128, Est GFR (MDRD) Non-Af 106, BUN/Creatinine Ratio 20.5 H, Glucose 142 H, Calcium 8.3 L, Total Bilirubin 0.40, AST 29, ALT 41, Alkaline Manuel sphatase 68, Total Protein 7.0, Albumin 3.3, Globulin 3.7, Albumin/Globulin Ratio 0.9 Microbiology: Microbiology 03/29/21 15:59 Interface Orders Nasal Screen MRSA/MSSA - Final Meaningful Use Info Meaningful Use Diagnoses (Choose all that apply): None applicable Discharge Plan Admission Admit Date/Time: 04/07/21 14:57 Primary Reason for Your Visit: surgery Attending Provider: Jovita Hewitt Primary Care Provider: Vitor Tobias Consulting Providers: Aida Martinez Discharge Orders/Prescriptions Prescriptions: No Action citalopram 20 MG tablet 20 mg PO DAILY RF: 0 tramadol 50 mg Tablet 50 mg PO Q6H RF: 0 cholecalciferol (vitamin D3) [Vitamin D3] 125 mcg (5,000 unit) Tablet 250 mcg PO DAILY RF: 0 Tylenol Migraine 0.5 - 1 tab PO/SL DAILY PRN PRN (Reason: Migraine Headache) RF: 0 Other Ambulatory Orders: Magnesium (Routine) Timeframe: [id number] Facility: [facility] - Location: Laboratory Ordered By: Dr. Garry Walton 12 Lead EKG (Routine) Location: None Selected Ordered By: Dr. Damir Dubose Referrals / Follow Up: Vitor Tobias MD [Primary Care Provider] - Disposition Disposition (needs filled in before D/C Order can be placed): Home, Self Care
== END 2021-04-08 14:45 | disposition home or self-care (01) | DRG 473 ==
LOC: ACINP 13:33 → MS3 13:34
PROVIDERS: Internal Medicine; Admitting Provider Orthopaedic Surgery; PCP Family Medicine; Referring Provider Orthopaedic Surgery; Visit Provider Internal Medicine
PROC: 0RG10A0 Fusion of Cervical Vertebral Joint with Interbody Fusion Device, Anterior Approach, Anterior Column, Open Approach (ICD-10-PCS; CPT 22551; principal; 2021-04-07 07:00)
DX: M50.022 Cervical disc disorder at C5-C6 level with myelopathy (principal); E66.9 Obesity, unspecified; G47.30 Sleep apnea, unspecified; F41.9 Anxiety disorder, unspecified; Z68.38 Body mass index [BMI] 38.0-38.9, adult; F32.A Depression, unspecified; R00.0 Tachycardia, unspecified; Z20.822 Contact with and (suspected) exposure to COVID-19; Z79.899 Other long term (current) drug therapy
CPT/HCPCS: 36415; 72020; 80048; 80053; 82962; 83735; 84484; 85025; 86703; 86706; 86708; 86803; 87081; 88304; 88311; 93005; 97162; 97530; 99251; C1713; J7120; A4216; G0463; J2405; J3490

== ENCOUNTER → 2021-08-23 | Outpatient (CLI) | payer BC, SELFPAY ==
[2021-08-23 17:56] LABS: Anion Gap 4 (5-15); BUN 24 mg/dL (7-18); BUN/Creat Ratio 25.6 RATIO (10-20); Chloride 106 mmol/L (98-107); Creatinine, Serum 0.94 mg/dL (0.70-1.30); EST Glomerular Filtration Rate 91 mL/min (>60); Est Glom Filt Rate - Afr Amer 111 mL/min (>60); Glucose 94 mg/dL (74-106); Potassium 3.8 mmol/L (3.5-5.1); Sodium Level 138 mmol/L (136-145)
== END | disposition home or self-care (01) ==
PROVIDERS: PCP Family Medicine; Referring Provider Family Medicine; Visit Provider Family Medicine
DX: E29.1 Testicular hypofunction (principal)
CPT/HCPCS: 36415; 80048; 84403

== ENCOUNTER → 2021-12-20 | Outpatient (CLI) | payer BC, SELFPAY ==
--- NOTE | 2021-12-20 15:19 | NEURO ---
NCS and/or EMG Patient Report Ordering Doctor: Damir Dubose DATE OF SERVICE: 12/20/21 Kirt presents for electrodiagnostic testing of the upper limbs. He reports numbness and tingling in both hands. He had neck surgery in April 2021 and continues to have stiffness. Electrodiagnostic findings: Right median motor nerve demonstrates prolonged distal latency with normal amplitude and reduced conduction velocity. Left median motor nerve demonstrates prolonged latency with reduced amplitude and reduced conduction velocity. Normal ulnar motor response bilaterally. Normal median and ulnar F waves. Prolonged median sensory latency at the wrist bilaterally. Normal ulnar and radial sensory responses. Needle EMG testing in the upper limbs showed no evidence of denervation with normal motor unit action potentials. Electrodiagnostic impression: This is an abnormal study in the upper limbs 1. Electrodiagnostic findings demonstrate bilateral median mononeuropathy. This is consistent with a moderate left carpal tunnel syndrome and a mild right carpal tunnel syndrome 2. No electrodiagnostic evidence is noted for cervical radiculopathy.
== END | disposition home or self-care (01) ==
LOC: PSN 14:10
PROVIDERS: PCP Family Medicine; Referring Provider Orthopaedic Surgery; Visit Provider Orthopaedic Surgery
DX: G56.03 Carpal tunnel syndrome, bilateral upper limbs (principal)
CPT/HCPCS: 95886; 95913

== ENCOUNTER → 2022-08-22 | Outpatient (CLI) | payer BC, SELFPAY ==
--- NOTE | 2022-08-22 16:04 | RAD_ITS ---
EXAM: XR RIGHT KNEE, 3 VIEWS CLINICAL INDICATION: PAIN TECHNIQUE: Three views of the right knee. COMPARISON: No relevant prior studies available. FINDINGS: BONES/JOINTS: Unremarkable. No acute fracture. No subluxation. Normal alignment. Preservation of the joint space. No sclerotic or destructive changes observed. SOFT TISSUES: Unremarkable. No soft tissue swelling or gas. No radiopaque foreign body. RAD/Knee 3 Views IMPRESSION: Negative right knee x-rays. Electronically Signed: José Antonio Jaramillo MD at 1:24 EDT ,
== END | disposition home or self-care (01) ==
LOC: MTRAD 16:03
PROVIDERS: PCP Family Medicine; Referring Provider Family Medicine; Visit Provider Family Medicine
DX: M25.561 Pain in right knee (principal)
CPT/HCPCS: 73562

== ENCOUNTER → 2022-11-19 | Outpatient (CLI) | payer BC, SELFPAY ==
--- NOTE | 2022-11-19 15:27 | RAD_ITS ---
STUDY: X-RAY - LUMBOSACRAL SPINE REASON FOR EXAM: Male, 47 years old. Low back pain. TECHNIQUE: view(s) of the lumbosacral spine 7, including lateral flexion and extension, were obtained. COMPARISON: Lumbar spine x-rays dated March 2014 FINDINGS: Normal lumbar lordosis. No substantial scoliosis. Normal alignment of the vertebrae. Diffuse lower thoracic and lumbosacral facet sclerosis. Limited flexion and extension without abnormal motion. Mild diffuse intervertebral disc space narrowing unchanged from the prior study. Normal bilateral sacral ala, sacroiliac joints, and visualized sacrum. Normal visualized soft tissue structures. RAD/L/S Spine w Bend Min 6 Vw IMPRESSION: Stable mild diffuse lower thoracic and lumbosacral spondylosis. Limited flexion and extension no abnormal motion. Electronically Signed: Gabriele Porter MD at 15:51 EDT ,
== END | disposition home or self-care (01) ==
LOC: RAD 15:13
PROVIDERS: PCP Family Medicine; Referring Provider Anesthesiology; Visit Provider Anesthesiology
DX: M54.50 Low back pain, unspecified (principal)
CPT/HCPCS: 72114

== ENCOUNTER → 2023-01-02 | Outpatient (CLI) | payer BC, SELFPAY ==
[2023-01-02 18:03] LABS: Anion Gap 5 (5-15); BUN 20 mg/dL (7-18); BUN/Creat Ratio 24.2 RATIO (10-20); Calcium,Total 8.8 mg/dL (8.5-10.1); Chloride 105 mmol/L (98-107); Cholesterol 205 mg/dL (200); Creatinine, Serum 0.82 mg/dL (0.70-1.30); EST Glomerular Filtration Rate 105 mL/min (>60); Est Glom Filt Rate - Afr Amer 128 mL/min (>60); Glucose 96 mg/dL (74-106); High Density Lipoprotein 36 mg/dL; Potassium 3.6 mmol/L (3.5-5.1); Sodium Level 138 mmol/L (136-145); Thyroid Stim Hormone (TSH) 2.32 uIU/mL (0.358-3.74); Triglycerides 313 mg/dL; Very Low Density Lipoprotein 63 mg/dL (5-40)
== END | disposition home or self-care (01) ==
LOC: MTLAB 15:53
PROVIDERS: PCP Family Medicine; Referring Provider Family Medicine; Visit Provider Family Medicine
DX: Z00.00 Encounter for general adult medical examination without abnormal findings (principal); E29.1 Testicular hypofunction
CPT/HCPCS: 36415; 80048; 80061; 84403; 84443

== ENCOUNTER → 2023-01-15 | Outpatient (CLI) | payer BC, SELFPAY ==
--- NOTE | 2023-01-15 15:18 | MRI_ITS ---
STUDY: MRI LUMBAR SPINE WITHOUT CONTRAST REASON FOR EXAM: Male, 47 years old. Bilateral leg numbness and lower back pain x18 years. TECHNIQUE: Standardized fat and water weighted pulse sequences were obtained in the sagittal and axial planes. COMPARISON: None FINDINGS: T11-T12 and T12-L1: (Sagittal only). Normal endplates. Normal disc height, hydration and morphology. No ventral extradural defects. Normal central canal and bilateral intervertebral neural foramina. Normal lumbar lordosis. There is no substantial scoliosis. Normal conus medullaris that terminates at the mid L1 vertebral body level. L1-2: Normal endplates. Normal disc height, hydration and morphology. Normal bilateral facet joints. Normal central canal and bilateral lateral recesses. Normal bilateral intervertebral neural foramina. L2-3: Normal endplates. Normal disc height, hydration and morphology. Normal bilateral facet joints. Normal central canal and bilateral lateral recesses. Normal bilateral intervertebral neural foramina. L3-4: Normal endplates. Normal disc height, hydration and morphology. Normal bilateral facet joints. Normal central canal and bilateral lateral recesses. Normal bilateral intervertebral neural foramina. L4-5: Normal endplates. Normal disc height, hydration and morphology. Normal bilateral facet joints. Normal central canal and bilateral lateral recesses. Normal bilateral intervertebral neural foramina. L5-S1: Normal endplates. Mild disc space height narrowing. Asymmetric posterior bulging annulus but no ventral extradural defect due to presence of ventral epidural fat. Pseudoretrolisthesis of L5 on S1 due to shorter AP dimension of the S1 superior endplate with a normal anterior vertebral line. Normal facet joints. Normal central canal and bilateral lateral recesses. Mild stenosis of the bilateral intervertebral neural foramina. Normal visualized sacral ala. Normal visualized paraspinous soft tissue structures. MRI/Spine Lumbar (Routine) IMPRESSION: 1. No MRI evidence of lumbar extruded disc fragment, disc protrusion or nerve root displacement. 2. Mild asymmetric posterior bulging annulus at L5-S1 disc space level but no ventral extradural defect due to presence of ventral epidural fat. Electronically Signed: Tye Valerio MD at 10:37 EST ,
== END | disposition home or self-care (01) ==
PROVIDERS: PCP Family Medicine; Referring Provider Anesthesiology; Visit Provider Anesthesiology
DX: M50.30 Other cervical disc degeneration, unspecified cervical region (principal); M54.16 Radiculopathy, lumbar region
CPT/HCPCS: 72148

== ENCOUNTER 2023-03-20 17:30 | Outpatient (RCR) | payer BC, SELFPAY ==
--- NOTE | 2023-01-23 16:18 | HP.PTEVAL_ITS ---
Patient's Visit Information Visit Information Visit Information: REBECCA PADGETT is a 47 year old M referred to Physical Therapy by Dr. Suresh Arechiga MD with a diagnosis of LBP. Date of Evaluation: 01/23/23 Physical Therapist: BRUCE Maya Visit Plan Frequency: 2x /Week Duration: 6 Weeks Plan: 2X/ week for 6 weeks for core stability, trunk ROM, Body mechanics reaching fw with weight at work, HS stretching with HEP Subjective Subjective: His Dr sent him here cause he has low back pain. He has always had pinched nerves and going to chiropractor for years. He has had both MRI and x- rays. The chiropractor said that he had closure around the nerve and the MRI did not show much. He goes to pain management for his back pain. He has meds for his pain (muscle relaxers and something like naproxen). Currently he has LB ache and R knee pain. He has a pattern of R leg pain that is in the front of the leg when he has back pain. He gets the pain 1-2X/ week down his R leg. Stretching on big ball helps to relieves his back and leg pain. He lays on the ball in more flexion to help relieve his pain. He reports that he B leg weakness at times. He reports that he has some numbness when sitting like at lunch etc. He reports that he has trouble sleeping cause of the pain and the meds helps. Steps: goes up and down recip. Pt reports that standing is worse for his back pain. He goes for walks and it hurts his back a little but with pain meds he does not notice it as much. 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 It is not bad if he can keep the weight close to him but if he has to reach fw it hurts (60#) Pain LBP: Pain Intensity (Out of 10): 3 R leg pain: Pain Intensity (Out of 10): 1 Objective Objective: Gait: walks with normal gait pattern He is able to walk on heels and toes without issue Patellar DTR's 1+/3 B Negative SLUMP test B SLR test negative B Prone press up no pain... just stretching LE MMT: R hip flex 19.9 and L 18.8 R knee ext 26.1 and L 26.1 R knee flex 14.9 and L 14.2 R hip ext 16.3 and L 17.7 R hip abd 12.6 and L 12.9 Trunk AROM : flex 50, ext 25, SB B 50, ROT B 75 Tight B HS, piriformis Balance/Special Test Scores Oswestry Low Back Score: 9 Goals Goal 1:: I HEP Goal Time Frame: 6-8 Weeks Goal 2:: Decrease pain by 50% Goal Time Frame: 6-8 Weeks Goal 3:: Decrease pain when reaching fw at work with 60# Goal Time Frame: 6-8 Weeks Goal 4:: Increase trunk AROM: (at the time of the eval: Trunk AROM : flex 50, ext 25, SB B 50, ROT B 75) Goal Time Frame: 6-8 Weeks Rehabilitation Potential Rehabilitation Potential: Good Anticipated Interventions Patient/Client Instruction: Educate patient on: Condition and Plan of Care For the Purpose of:: To decrease pain, To increase ROM, To improve nutrient delivery to tissue, To improve muscle performance and motor function, To improve ability to perform ADL's, To increase tolerance to activity/condition/position, To improve performance and independence with ADL's, To improve ability of physical actions for home/community/work/leisure, To improve health of tissue, To decrease soft tissue restriction and To increase flexibility/ROM Therapeutic Exercise to Include: Strength training, Body mechanics, Postural training, Flexibilty training, Neuromotor development, Active ROM, Dynamic Lumbar Stabilization and Ciera Exercises For the Purpose of:: To decrease pain, To increase ROM, To improve nutrient delivery to tissue, To improve muscle performance and motor function, To improve ability to perform ADL's, To increase tolerance to activity/condition/position, To improve performance and independence with ADL's, To decrease level of supervision to perform tasks, To improve ability of physical actions for home/community/work/leisure, To improve health of tissue, To decrease soft tissue restriction and To increase flexibility/ROM Text: Thank you for the opportunity to evaluate your patient. For Medicare and Medicare HMO plans, please review the plan of care and approve it. It will need to be FAXED BACK to us at [phone] for Medicare purposes. For Medicare only, by signing this I certify the plan of care. Please let me know if there are questions or concerns regarding this plan of care. Physician Signature: Date:
--- NOTE | 2023-03-20 17:53 | HP.PTDCSUM ---
Discharge Summary D/C summary: It has been my pleasure to treat REBECCA PADGETT referred by Dr. Suresh Arechiga MD, with the diagnosis of LBP for a total of 12 visit(s). Discharge Date: 03/20/23 Please see the following information for a summary of their discharge status. Subjective Subjective: He has been doing stuff on his own as well. He had back pain and hip pain last week. If he does his stretches he feels pretty good Pain LBP: Pain Intensity (Out of 10): 0 R leg pain: Pain Intensity (Out of 10): 0 Overall Improvement % Improvement: 90 Objective Objective/Function: Trunk AROM : flex 100, ext 75, SB B 100, ROT B 75 Goals Goal 1:: I HEP Goal Progress: Goal Met Goal 2:: Decrease pain by 50% Goal Progress: Goal Met Goal 3:: Decrease pain when reaching fw at work with 60# Goal Progress: Goal Met Goal 4:: Increase trunk AROM: (at the time of the eval: Trunk AROM : flex 50, ext 25, SB B 50, ROT B 75) Goal Progress: Goal Met Plan Plan: DC PT to HEP and indep gym D/C Information Discharge Comments: DC PT to indep HEP/gym routine d/c sentence: If there are questions or concerns regarding this patient's physical therapy, please feel free to call me at [phone]. Thank you for the referral of this patient. Sincerely, Rosario Matthews, MPT Balance/Gait/Functional tests Balance/Special Test Scores Oswestry Low Back Score: 0 Improvement % Improvement: 90
== END 2023-03-20 19:00 | disposition home or self-care (01) ==
LOC: PT 17:30
PROVIDERS: PCP Family Medicine; Visit Provider Anesthesiology
DX: M54.50 Low back pain, unspecified (principal)
CPT/HCPCS: 97110; 97161; 97530

== ENCOUNTER → 2024-12-07 | Outpatient (CLI) | payer BC, SELFPAY ==
[2024-12-07 18:34] LABS: Anion Gap 12 (5-15); BUN 17 mg/dL (4-19); BUN/Creat Ratio 20.3 RATIO (10-20); Calcium,Total 9.4 mg/dL (7.6-11.0); Carbon Dioxide 26.6 mmol/L (21.0-32.0); Chloride 101 mmol/L (98-108); Cholesterol 196 mg/dL (<=200); Glucose 92 mg/dL (70-99); Low Density Lipoprotein Calc. 114 mg/dL; Potassium 4.0 mmol/L (3.3-5.1); Triglycerides 207 mg/dL; Very Low Density Lipoprotein 41 mg/dL (5-40); cholesterol:hdl ratio screen 4.31
== END | disposition home or self-care (01) ==
PROVIDERS: PCP Family Medicine; Referring Provider Family Medicine; Visit Provider Family Medicine
DX: E78.2 Mixed hyperlipidemia (principal)
CPT/HCPCS: 36415; 80048; 80061